=== PATIENT | male | born 1980 | race Caucasian/White ===

== ENCOUNTER 2016-08-24 02:33 | Emergency (ER) | payer SELFPAY ==
[~2016-08-24] VITALS: Ht 172.7 cm; Wt 84.0 kg
[2016-08-24 02:43] VITALS: BP 137/73; PULSE 93; RESP 16; TEMP 98.4; O2SAT 96
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
[2016-08-24 03:38] LABS: AUTOMATED NEUTROPHIL # 3.8 TH/MM3 (1.8-7.7); BASOPHIL # 0.1 TH/MM3 (0-0.2); BASOPHIL % 1.5 % (0.0-2.0); EOSINOPHIL # 0.3 TH/MM3 (0-0.4); EOSINOPHIL % 3.4 % (0.0-4.0); HEMATOCRIT 38.8 % (39.0-51.0); HEMO FLAGS DIFF FINAL; LYMPH % 42.4 % (9.0-44.0); LYMPHOCYTE # 3.6 TH/MM3 (1.0-4.8); MEAN CELL VOLUME 94.6 FL (80.0-100.0); MEAN CORPUSCULAR HEMOGLOBIN 31.1 PG (27.0-34.0); MEAN CORPUSCULAR HGB CONC 32.9 % (32.0-36.0); MONO % 7.8 % (0.0-8.0); NEUT % 44.9 % (16.0-70.0); PLATELET COUNT 248 TH/MM3 (150-450); RED CELL DISTRIBUTION WIDTH 13.9 % (11.6-17.2); WHITE BLOOD COUNT 8.5 TH/MM3 (4.0-11.0)
[2016-08-24 03:44] LABS: ALT (GPT) 44 U/L (12-78); ANION GAP 10 MEQ/L (5-15); AST (GOT) 42 U/L (15-37); BICARBONATE 25.4 MEQ/L (21.0-32.0); BLOOD UREA NITROGEN 15 MG/DL (7-18); CHLORIDE 111 MEQ/L (98-107); GLOMERULAR FILTRATION RATE 144 ML/MIN (>89); POTASSIUM 3.6 MEQ/L (3.5-5.1); SODIUM (NA) 146 MEQ/L (136-145)
[2016-08-24 03:48] LABS: ALKALINE PHOSPHATASE 54 U/L (45-117); TOTAL BILIRUBIN ADULT LESS THAN 0.1 MG/DL (0.2-1.0)
[2016-08-24 03:58] LABS: AMPHETAMINE, URINE NEG (NEG); BARBITURATES, URINE NEG (NEG); COCAINE, URINE NEG (NEG)
[2016-08-24 07:45] VITALS: BP 129/75; PULSE 94; RESP 18; TEMP 99.5; O2SAT 97
[2016-08-24 10:10] VITALS: BP 138/63; PULSE 82; RESP 18
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
== END 2016-08-24 15:30 | disposition home or self-care (01) ==
LOC: NEPD 02:33 → NEPJ 15:30
DX: F43.25 Adjustment disorder with mixed disturbance of emotions and conduct (principal); F19.94 Other psychoactive substance use, unspecified with psychoactive substance-induced mood disorder; F12.90 Cannabis use, unspecified, uncomplicated; F31.9 Bipolar disorder, unspecified; F17.210 Nicotine dependence, cigarettes, uncomplicated; F10.20 Alcohol dependence, uncomplicated; Z88.0 Allergy status to penicillin; Y90.8 Blood alcohol level of 240 mg/100 ml or more
CPT/HCPCS: 80053; 80307; 85025; 99285

== ENCOUNTER 2017-01-11 11:54 | Emergency (ER) | payer SELFPAY ==
[~2017-01-11] VITALS: Ht 177.8 cm; Wt 85.0 kg
[2017-01-11 11:56] VITALS: BP 125/72; PULSE 89; RESP 14; TEMP 99; O2SAT 99
[2017-01-11] MEDS ORDERED: CLIN150C14 PO (12:08)
[2017-01-11] MEDS ORDERED: PERI0.126 SWISH-SPIT (12:08)
[2017-01-11] MEDS ORDERED: PRED-503 PO (12:08)
[2017-01-11] MEDS ORDERED: IBUP1TAB7 PO (12:08)
--- NOTE | 2017-01-11 12:09 | PD ---
HPI Chief Complaint: Oral / Dental Pain or Problem Time Seen by Provider: 12:06 Travel History International Travel<30 days: No Contact w/Intl Traveler<30days: No Traveled to known affect area: No History of Present Illness HPI 36-year-old male presents emergency Department with complaint of right upper tooth pain 3 days. Reports facial edema. Denies fever, vomiting. Denies sore throat or difficulty swallowing. Radiation of pain to the ear. Rates pain 10/10. Describes it as a throbbing and shooting sensation. Has tried warm water salt gargles for symptom management. Pain is constantly aggravating. No known relieving factors. Allergies to penicillin. Has no other medical complaints. No other modifying factors or associated signs and symptoms. PFSH Past Medical History ADHD: Yes Bipolar Disorder: Yes Depression: Yes Diabetes: No Diminished Hearing: No Neurologic: Yes ("SCIATIC NERVE DAMAGE") Past Surgical History Other Surgery: Yes (SPLENECTOMY AT AGE 7) Social History Alcohol Use: Yes (7-8 [employer]/DAY) Tobacco Use: Yes (1.5 PPD) Substance Use: Yes Allergies-Medications (Allergen,Severity, Reaction): Coded Allergies: penicillin G (Unverified Allergy, Unknown, 10/23/16) Reported Meds & Prescriptions Reported Meds & Active Scripts Active Ibuprofen 800 Mg Tab 800 Mg PO Q6HR PRN Deltasone (Prednisone) 20 Mg Tab 40 Mg PO DAILY 4 Days start 01/12/2017 Peridex Liq (Chlorhexidine Gluconate (Mouth) Liq) 0.12% Soln 15 Ml SWISH-SPIT BID 10 Days Clindamycin (Clindamycin HCl) 150 Mg Cap 450 Mg PO Q6H 10 Days Review of Systems Except as stated in HPI: all other systems reviewed are Neg Physical Exam Narrative GENERAL: Well-nourished, well-developed male patient, in no acute distress; afebrile, nontoxic-appearing SKIN: Warm and dry. HEAD: Atraumatic. Normocephalic. Right facial edema, without erythema, with tenderness on palpation. No lymphadenopathy. EYES: Pupils equal and round. No scleral icterus. No injection or drainage. ENT: Mucosa pink and moist. No erythema or exudates. No uvular edema. No uvular , palatal, or tonsillar deviation. Airway patent. EARS: Bilateral pinnae and external canals appear within normal limits. Bilateral tympanic membranes without erythema, dullness or perforation. MOUTH: Mucous membranes moist, no lesions, tongue and gums appear normal. Right upper first molar with tenderness on palpation. Noted draining abscess to the right upper gingiva; minimal amount of purulent drainage noted. Surrounding gingiva is without erythema, edema. NECK: Trachea midline. No lymphadenopathy. CARDIOVASCULAR: Regular rate. RESPIRATORY: No accessory muscle use. GASTROINTESTINAL: Flat. MUSCULOSKELETAL: No obvious deformities. No clubbing. No cyanosis. No edema. NEUROLOGICAL: Awake and alert. Oriented 3. No obvious cranial nerve deficits. Motor grossly within normal limits. Normal speech. PSYCHIATRIC: Appropriate mood and affect; insight and judgment normal. Data Data Last Documented VS Vital Signs Date Time Temp Pulse Resp B/P (MAP) Pulse Ox O2 Delivery O2 Flow Rate FiO2 01/11/17 11:56 99.0 89 14 125/72 (89) 99 Orders Orders Clindamycin Inj (Cleocin Inj) (01/11/17 12:15) Ketorolac Inj (Toradol Inj) (01/11/17 12:15) Prednisone (Deltasone) (01/11/17 12:15) MDM Medical Decision Making Medical Screen Exam Complete: Yes Emergency Medical Condition: Yes Medical Record Reviewed: Yes Differential Diagnosis Dental abscess, dentalgia, dental cavities, gingivitis, less likely peritonsillar abscess Narrative Course 36-year-old male with dentalgia to the right upper first molar and a draining dental abscess noted to the gingiva. She is afebrile and nontoxic-appearing. Has right upper facial edema. Denies fever, vomiting. Clindamycin 600 mg IM, Deltasone, Toradol administered in the ER. Patient provided emergency information dental sheet for follow-up. Instructed patient to follow up with dentist. Clindamycin, Peridex mouth rinse, ibuprofen, Deltasone prescribed for home. Instructed patient to follow up with primary care provider. Patient verbalizes understanding and agreement with treatment plan. Patient is medically cleared and stable for discharge. Discussed reasons to return to the emergency department. Patient agrees with treatment plan. The patients vital signs are stable and the patient is stable for outpatient follow-up and treatment. Patient discharged home, stable and in no acute distress. Diagnosis Primary Impression: Dental abscess Referrals: [facility]ist Primary Care Physician Patient Instructions: Dental Abscess (ED), Dental Caries (ED), General Instructions, Toothache (ED) Departure Forms: Tests/Procedures, Work Release Enter return to work date: Jan 12, 2017 Additional Instructions: Complete full course of antibiotics; clindamycin is $20 at [facility] Ibuprofen or Tylenol as directed and as needed to reduce pain and inflammation Use Peridex as directed for oral hygiene Warm or cool compresses to the affected area Follow-up with dentist Follow-up with primary care provider Return to emergency department immediately with worsening of symptoms Med/Other Pt SpecificInfo: Prescription(s) given Scripts Ibuprofen (Ibuprofen) 800 Mg Tab 800 MG PO Q6HR Y for PAIN, #30 TAB 0 Refills Prov: Nupur Campos 01/11/17 Prednisone (Deltasone) 20 Mg Tab 40 MG PO DAILY for 4 Days, #8 TAB 0 Refills start 01/12/2017 Prov: Nupur Campos 01/11/17 Chlorhexidine Gluconate (Mouth) Liq (Peridex Liq) 0.12% Soln 15 ML SWISH-SPIT BID for 10 Days, #300 ML 0 Refills Prov: Nupur Campos 01/11/17 Clindamycin (Clindamycin) 150 Mg Cap 450 MG PO Q6H for Infection for 10 Days, #120 CAP 0 Refills Prov: Nupur Campos 01/11/17 Disposition: 01 DISCHARGE HOME Condition: Stable Nupur Campos Jan 11, 2017 12:09
[2017-01-11] MEDS ORDERED: predniSONE 20 MG TAB PO ONE (12:15)
[2017-01-11] MEDS ORDERED: KETOROLAC TROMETHAMINE 60 MG/2 ML (IM) VIAL IM ONE (12:15)
[2017-01-11] MEDS ORDERED: CLINDAMYCIN PHOS 600 MG/4 ML VIAL IM ONE (12:15)
== END 2017-01-11 13:19 | disposition home or self-care (01) ==
LOC: NEPK 11:54
DX: K04.7 Periapical abscess without sinus (principal); F90.9 Attention-deficit hyperactivity disorder, unspecified type; F31.9 Bipolar disorder, unspecified; F17.200 Nicotine dependence, unspecified, uncomplicated; Z79.899 Other long term (current) drug therapy; Z88.0 Allergy status to penicillin
CPT/HCPCS: 96372; 99284; J1885; J7512